=== PATIENT | male | born 1965 | race Caucasian/White ===

== ENCOUNTER → 2017-01-13 | Outpatient (CLI) | payer OTHER ==
--- NOTE | 2017-01-13 12:50 | MRI ---
EXAM DESCRIPTION: Knee,Left CLINICAL HISTORY: PAIN COMPARISON: None Available. TECHNIQUE: MRI of the left knee is performed according to our usual protocol with multiplanar multi sequence imaging. FINDINGS: Small left knee joint effusion. There is deep fissuring of the articular cartilage of the medial facet of the patella along its medial margin. This represents a focal full thickness vertical fissure. Corresponding near full-thickness grade 3 defect is present in the central femoral trochlea. Medial compartment articular surfaces show grade 2 chondrosis. Lateral compartment well preserved. There is an extensive horizontal cleavage plane tear of the medial meniscus involving the mid body and posterior horn with a related small para meniscal cyst measuring about 5 to 6 mm. No displaced fragment. Lateral meniscus intact. Cruciate and collateral ligaments intact. IMPRESSION: 1. Complex medial meniscus tear 2. Patellofemoral chondrosis-significant Electronically signed by: Alon Phillip MD 01/13/2017 12:49 PM [facility]
== END | disposition home or self-care (01) ==
LOC: MRI 11:06
PROVIDERS: ATTEND Family Medicine
DX: S83.282A Other tear of lateral meniscus, current injury, left knee, initial encounter (principal)

== ENCOUNTER → 2017-02-05 | Outpatient (CLI) | payer OTHER ==
--- NOTE | 2017-02-05 12:41 | RAD ---
History: Hip pain. Pelvis: AP film is obtained. No prior study. No bony abnormality or acute injury. Joint spaces appear well-maintained and sacroiliac joints symmetric. Minimal spurring L4-L5. Suspected injection granuloma left gluteal soft tissues. Visualized bowel gas pattern is normal. IMPRESSION: Negative pelvis. Electronically signed by: Benita Barragan MD 02/05/2017 12:40 PM CDT
== END | disposition home or self-care (01) ==
LOC: RAD 08:35
PROVIDERS: ATTEND Orthopaedic Surgery
DX: M25.562 Pain in left knee (principal); M25.552 Pain in left hip

== ENCOUNTER 2017-11-29 08:18 | Emergency (ER) | payer BC, OTHER ==
--- NOTE | 2017-11-29 08:57 | CT ---
Procedure: CT HEAD WITHOUT IV CONTRAST Exam Date: 11/29/2017 8:36 AM [facility] Ordering Provider: Dany Nunez Clinical Indication: cva Comparison: None Technique: CT images of the head were obtained without contrast administration. Coronal and sagittal reformats were obtained. This exam was performed according to our departmental dose-optimization program which includes automated exposure control, adjustment of the mA and/or kV according to patient size and/or use of iterative reconstruction technique. Findings: There is no acute cortical infarction, hemorrhage, midline shift, mass effect, or hydrocephalus. The calvaria and skull base are unremarkable. Scattered mucosal thickening involves the ethmoid air cells. Remaining paranasal sinuses and mastoid air cells are well aerated. Impression: 1. No acute intracranial abnormality. Electronically signed by: Lisa Correa MD 11/29/2017 8:56 AM [facility]
[2017-11-29 09:00] VITALS: TEMP 97.8; O2SAT 96
--- NOTE | 2017-11-29 09:02 | RAD ---
Procedure: XR CHEST 1 VIEW Exam Date: 11/29/2017 8:37 AM [facility] Ordering Provider: Dany Nunez Clinical Indication: CVA. Cardiomegaly Comparison: None Findings: Lungs are clear. Heart size is within normal limits. No acute osseous abnormality. Impression: No acute cardiopulmonary process. Electronically signed by: Lisa Correa MD 11/29/2017 9:01 AM [facility]
[2017-11-29] MEDS ORDERED: ASPIRIN TABLET 325 MG TAB PO ONE (09:03)
--- NOTE | 2017-11-29 09:10 | ED.PDOC ---
History of Present Illness - General Chief Complaint: Neuro Symptoms/Deficits Stated Complaint: left facial numbness, unsteady gait Time Seen by Provider: 11/29/17 08:35 Source: patient, family Additional Information: 52 YEAR OLD WHITE MALE WOKE UP THIS MORNING NORMAL BUT AT 7 AM HE STARTED EXPERIENCING NUMBNESS INVOLVING THE LEFT SIDE OF FACE AND LEFT ARM ASSOCIATED WITH UNSTEADY GAIT DOUBLE VISION ALL OF WHICH STILL PERSISTS UPON ARRIVAL HE HAS NO KNOWN RISK FACTORS FOR ATHEROSCLEROSIS NO HISTORY OF CARDIAC ARRHYTHMIA NO HEAD TRAUMA NO SEISURE DISORDER NO DAIBETES - History of Present Illness Timing/Duration: 1-3 hours, other Severity: moderate Episode Description: ONSET 7 AM THIS MORNING Improving Factors: nothing Worsening Factors: nothing Associated Symptoms: denies symptoms Allergies/Adverse Reactions: Allergies NO KNOWN ALLERGY Allergy (Verified 11/29/17 08:52) Home Medications: Ambulatory Orders NK [NK] 11/29/17 Review of Systems - Review of Systems Constitutional: States: no symptoms reported EENTM: States: no symptoms reported Respiratory: States: no symptoms reported Cardiology: States: no symptoms reported Gastrointestinal/Abdominal: States: no symptoms reported Genitourinary: States: no symptoms reported Musculoskeletal: States: no symptoms reported Skin: States: no symptoms reported Neurological: States: no symptoms reported, see HPI Endocrine: States: no symptoms reported Hematologic/Lymphatic: States: no symptoms reported All other Systems: Reviewed and Negative Past Medical History (General) - Patient Medical History Hx Gastroesophageal Reflux: Yes - occasional Surgical History: no surgical history - Vaccination History Hx Influenza Vaccination: No Hx Pneumococcal Vaccination: No - Social History Hx Tobacco Use: No Hx Alcohol Use: Yes - 2-3 whiskey daily Hx Substance Use: No Hx Substance Use Treatment: No Hx Depression: No Family Medical History - Family History Father Living Status: Hx Family Cancer: Yes - lung Physical Exam - Physical Exam General Appearance: Alert, Well Developed, Well Groomed Eye Exam: bilateral normal ENT Exam: normal ENT inspection Neck: non-tender, full range of motion, supple, normal inspection Respiratory: chest non-tender, lungs clear, normal breath sounds, no respiratory distress, no accessory muscle use Cardiovascular/Chest: normal peripheral pulses, regular rate, rhythm, no edema, no gallop, no JVD, no murmur Peripheral Pulses: radial,right: 2+, radial,left: 2+, femoral,right: 2+, dorsalis pedis,right: 2+, dorsalis pedis,left: 2+ Gastrointestinal/Abdominal: normal bowel sounds, non tender, soft, no organomegaly, no pulsatile mass Back Exam: normal inspection, no CVA tenderness, no vertebral tenderness Extremities Exam: non-tender, normal range of motion, no evidence of injury Mental Status: alert, oriented x 3 cs associate Exam: normal hearing, normal speech, PERRL, facial paresthesias Coordination/Gait: abnormal gait, ABN nose to finger (R), positive Romberg's sign Motor/Sensory: no motor deficit, no pronator drift, negative Babinski's sign, sensory deficit DTR: 3+: Biceps, left, Biceps, right, Triceps, left, Triceps, right, Brachioradialis, left, Brachioradialis, right, Achilles, left, Achilles, right, Patellar, left, Patellar, right Skin Exam: normal color, warm/dry Progress - EKG/XRAY/CT CT: NO BLEED NO MIDLINE SHIFT - Consult/PCP Time Called: 09:24 - Additional EKG/XRAY/Consults EKG #2: Sinus Departure - Departure Clinical Impression: Stroke-like symptoms, Transient ischaemic attack (TIA), and cerebral infarction without residual deficits ICD-10 Supporting Text: TIA DISCUSSED WITH [facility] ED DR MEDRANO WHO ACDEPTED THE PATIENT FOR FURTHER NEUROLOGICAL STROKE WORK UP Disposition: Transfer to Hospital Condition: Good Departure Forms: ED Discharge - Pt. Copy, Patient Portal Self Enrollment Referrals: Dung Cade III, MD [Primary Care Provider] - 1-2 Weeks Home Medications: Ambulatory Orders NK [NK] 11/29/17 Transfer to Outside Facility - Transfer Information Accepting Provider:: DR MEDRANO Accepting Facility: [facility] - EMERGENCY DEPARTMENT
[2017-11-29 19:26] VITALS: BP 139/63
== END 2017-11-29 10:05 | disposition short-term general hospital (02) ==
LOC: ER 08:18
DX: G45.9 Transient cerebral ischemic attack, unspecified (principal)

== ENCOUNTER → 2018-10-14 | Outpatient (CLI) | payer BC | LOC: GMAL 11:24 | PROVIDERS: ATTEND Family Medicine | DX: Z00.00 Encounter for general adult medical examination without abnormal findings (principal) ==

== ENCOUNTER → 2018-10-22 | Outpatient (CLI) | payer BC, OTHER ==
--- NOTE | 2018-10-22 10:29 | MRI ---
EXAM DESCRIPTION: Cervical Spine: MRI. CLINICAL HISTORY: 53 years Male M48.02 COMPARISON: Cervical TECHNIQUE: Multiplanar, high-field MRI, multiple sequences, non-contrast Cervical spine. FINDINGS: C3-4: Disc desiccation and disc space loss. Minimal anterior bulging. Posterior broad-based disc osteophyte bulge impressing on the cord with AP canal diameter 6 mm. Also minimal hypertrophy of the posterior ligaments. Focal hyperintense T2 and FLAIR signal in the ventral cord just below the impingement. Bilateral uncinate spurs and bilateral neural foraminal stenosis. Bilateral facets are negative. C4-5: Disc desiccation and posterior midline 3 mm bulge abutting the cord. AP canal diameter 7 mm. Right uncinate spur and neural foraminal stenosis. Bilateral facets are negative. C5-6: Disc desiccation and minimal disc space loss especially anteriorly. Anterior bulging and endplate ridging. Posterior 3 mm bulge in the midline into the left of midline abutting the cord with AP canal diameter 7 mm. Right uncinate spur with moderate narrowing. Left uncinate spur and neural foraminal stenosis. C6-7: Disc desiccation and minimal disc space loss posterior. Minimal anterior bulging. Posterior bulge left laterally abutting the exiting left C7 nerve and left ventral lateral cord. Left paracentral borderline canal stenosis. Bilateral uncinate spurs encroaching on the neural foramina with bilateral stenosis. Facets are negative. C7-T1: Disc normal signal with inferior endplates Schmorl's node. No bulging of the disc. Canal and neural foramina are patent. Normal signal in the C2-C3 and T1-T2 discs with no bulging. Disc spaces preserved. Canal and neural foramina are patent. Facets are unremarkable. Spinal alignment reduced lordosis. No cord compression or cord edema at other levels. Atlantoaxial joint negative.. Base of the cerebellar tonsils is above the foramen magnum. Paravertebral soft tissues are unremarkable. Vertebral bodies are not compressed at any level. Possibly increased STIR marrow signal in the right T4 vertebral body and pedicle. Otherwise normal marrow signal in the remaining vertebral bodies and the posterior elements. IMPRESSION: 1. Posterior disc osteophyte complex at C3-4 impressing on the cord with cord compression and cord edema. Moderate central canal stenosis. Bilateral uncinate spurs and bilateral neural foraminal stenosis. Correlate for bilateral C4 radiculopathy. 2. Posterior midline C4-5 disc bulge abutting the cord with mild central canal stenosis but no cord compression or edema. Right neural foraminal stenosis, correlate for right C5 radiculopathy. 3. Left posterior C5-6 disc bulge abutting the cord with left paracentral mild canal stenosis. Left neural foraminal stenosis. Correlate for left C6 radiculopathy. 4. Left posterior C6-7 disc bulge abutting the cord and the left C7 nerve root. Left paracentral borderline mild canal stenosis. Bilateral neural foraminal stenosis. Correlate for bilateral C7 radiculopathy. Electronically signed by: Mauricio Silverio MD 10/22/2018 10:28 AM [facility]
== END ==
LOC: MRI 07:54
PROVIDERS: ATTEND Family Medicine
DX: M48.02 Spinal stenosis, cervical region (principal); M25.78 Osteophyte, vertebrae; M50.822 Other cervical disc disorders at C5-C6 level; M50.823 Other cervical disc disorders at C6-C7 level

== ENCOUNTER → 2019-02-24 | Outpatient (CLI) | payer BC, OTHER | LOC: GMAL 15:13 | PROVIDERS: ATTEND Family Medicine | DX: Z01.818 Encounter for other preprocedural examination (principal) ==

== ENCOUNTER → 2019-11-23 | Outpatient (CLI) | payer BC, OTHER | LOC: GMAL 13:09 | PROVIDERS: ATTEND Family Medicine | DX: D51.8 Other vitamin B12 deficiency anemias (principal); R53.82 Chronic fatigue, unspecified; E11.9 Type 2 diabetes mellitus without complications; E55.9 Vitamin D deficiency, unspecified; E78.5 Hyperlipidemia, unspecified; Z12.5 Encounter for screening for malignant neoplasm of prostate ==

== ENCOUNTER → 2020-06-15 | Outpatient (CLI) | payer BC | LOC: GMAL 11:37 | PROVIDERS: ATTEND Family Medicine | DX: Z00.00 Encounter for general adult medical examination without abnormal findings (principal); D51.8 Other vitamin B12 deficiency anemias; E55.9 Vitamin D deficiency, unspecified ==

== ENCOUNTER → 2020-10-29 | Outpatient (CLI) | payer BC | LOC: GMAL 10:48 | PROVIDERS: ATTEND Family Medicine | DX: D51.8 Other vitamin B12 deficiency anemias (principal); Z79.899 Other long term (current) drug therapy ==